=== PATIENT | female | born 1960 | race Asian ===

== ENCOUNTER 2016-12-03 06:51 | Day surgery (SDC) | payer OTHER ==
[~2016-12-03] VITALS: Ht 154.9 cm; Wt 58.1 kg
[2016-12-03] MEDS ORDERED: [UNRECOGNIZED DRUG - OTHER] (07:56)
[2016-12-03] MEDS ORDERED: blood pressure pill (07:56)
[2016-12-03 08:01] VITALS: BP 141/89; PULSE 70; RESP 18; Ht 154.9 cm; Wt 58.1 kg
[2016-12-03] MEDS ORDERED: PROPOFOL 20 ML ONE (08:26)
[2016-12-03] MEDS ORDERED: EPHEDrine SULFATE 50 MG/5 ML SYG ONE (08:26)
[2016-12-03] MEDS ORDERED: FENTAnyl 50 MCG/ML VIAL ONE (08:27)
[2016-12-03] MEDS ORDERED: MIDAZOLAM 1 MG/ML 2 ML INJ ONE (08:27)
[2016-12-03 09:15] VITALS: BP 128/89; PULSE 66; RESP 18
--- NOTE | 2016-12-04 08:01 | GILP ---
DATE OF PROCEDURE: PROCEDURE: Colonoscopy. INDICATION: A 56-year-old female undergoing this procedure for colon cancer screening. The risks o f the procedure, related and unrelated complications, anesthetic risks, alternatives discussed and i nformed consent was obtained. DESCRIPTION OF PROCEDURE: The patient was brought to the GI lab, sedated by Dr. Salinas. After opti mum sedation the pediatric colonoscope passed with much ease into rectum and through the redundant c olon, advanced all the way into cecum and finally into terminal ileum. Terminal ileum was normal up to 2 feet. While coming out, mucosa thoroughly inspected. The rest of the colon was normal. No d iverticula and no polyps seen. Patient had small hemorrhoids. IMPRESSION: 1. Normal findings all the way into cecum. 2. Normal terminal ileum. 3. Small hemorrhoids. 4. Clarity and cleanliness was good. PLAN: Stay on high fiber diet. Next colonoscopy after 10 years. Dictated By: KELVIN GONZÁLES/JUAN CARLOS Conf#: [id number] DID#: [id number]
== END 2016-12-03 11:16 | disposition home or self-care (01) ==
LOC: GIL 06:51
PROVIDERS: ATTEND Internal Medicine Gastroenterology
DX: Z12.11 Encounter for screening for malignant neoplasm of colon (principal); I10 Essential (primary) hypertension; F41.9 Anxiety disorder, unspecified
CPT/HCPCS: 45378; J2250; J3010; Z7610